=== PATIENT | female | born 1980 | race African-American/Black ===

== ENCOUNTER 2016-07-11 10:12 | Inpatient (IN) | payer OTHER ==
[2016-07-11 11:26] VITALS: BMI 24.6
--- NOTE | 2016-07-11 17:12 | HP ---
Admission ROS [facility] Chief Complaint: "I am here to Stop using drugs." Pt. is here for Rehab for Alcohol, Cocaine, and Marijuana. Allergies/Adverse Reactions: Allergies Allergy/AdvReac Type Severity Reaction Status Date / Time No Known Allergies Allergy Verified 07/11/16 12:47 History of Present Illness: Pt. is a 35 YO female here for Rehab for Alcohol, Cocaine, and for Marijuana. This is pt.'s first Inpatient Rehab admission at [facility]. Exam Limitations: No Limitations - Ebola screening Have you traveled outside of the country in the last 21 days: No Have you had contact with anyone from an Ebola affected area: No Have you been sick,other than usual withdrawal symptoms: No Do you have a fever: No - Review of Systems Constitutional: Chills, Diaphoresis, Fever, Loss of Appetite, Malaise, Night Sweats, Changes in sleep, Unexplained wgt Loss (Pt. has lost approx. 45 lbs. over last 6 months.) EENT: reports: Blurred Vision, Tearing, Other (Metal in Jaw.) Respiratory: reports: No Symptoms reported Cardiac: reports: No Symptoms Reported GI: reports: Poor Appetite : reports: No Symptoms Reported Musculoskeletal: reports: Back Pain, Joint Pain, Muscle Pain, Neck Pain, Joint Stiffness Integumentary: reports: No Symptoms Reported Neuro: reports: Numbness (Occasional in fingertips of bilateral hands and toes of bilateral feet.), Tingling (Occasional in fingertips of bilateral hands and toes of bilateral feet.) Endocrine: reports: No Symptoms Reported Hematology: reports: Anemia Psychiatric: reports: Judgement Intact, Mood/Affect Appropiate, Anxious, Depressed (On meds.), Disorientated (To Day / Date.) Other Systems: Reviewed and Negative Patient History - Patient Medical History Hx Anemia: Yes (Does not remember if she takes any med.) Hx Asthma: No Hx Chronic Obstructive Pulmonary Disease (COPD): No Hx Cancer: No Hx Cardiac Disorders: No Hx Congestive Heart Failure: No Hx Hypertension: No Hx Hypercholesterolemia: No Hx Pacemaker: No HX Cerebrovascular Accident: No Hx Seizures: No Hx Dementia: No Hx Diabetes: No Hx Gastrointestinal Disorders: No Hx Liver Disease: No Hx Genitourinary Disorders: No Hx Sexually Transmitted Disorders: No Hx Renal Disease (ESRD): No Hx Thyroid Disease: No Hx Human Immunodeficiency Virus (HIV): No (Last tested: 03/2016: NEGATIVE.) Hx Hepatitis C: No (Last tested: 03/2016: NEGATIVE.) Hx Depression: Yes (On meds.) Hx Suicide Attempt: No (PATIENT DENIES CURRENT SI / HI.) Hx Bipolar Disorder: Yes (On meds.) Hx Schizophrenia: Yes (Unsure; Informed by one MD in past that she might have.) - Patient Surgical History Past Surgical History: Yes Hx Neurologic Surgery: Yes (Head surgery, metal plate inserted, @ 2007.) Hx Cataract Extraction: No Hx Cardiac Surgery: No Hx Lung Surgery: No Hx Breast Surgery: No Hx Breast Biopsy: No Hx Abdominal Surgery: No Hx Appendectomy: No Hx Cholecystectomy: No Hx Genitourinary Surgery: No Hx Section: No Hx Orthopedic Surgery: No Hx Hysterectomy: No Anesthesia Reaction: No - PPD History Previous Implant?: Yes Documented Results: Negative w/o proof Implanted On Prior [facility] Admission?: Yes Date: 10/23/11 Results: OMM PPD to be Administered?: Yes - Reproductive History Patient is a Female of Child Bearing Age (11 -55 yrs old): Yes Last Menstrual Period: 06/24/16 Patient : No - Smoking Cessation Smoking history: Current every day smoker Have you smoked in the past 12 months: Yes Aproximately how many cigarettes per day: 1 Cigars Per Day: 0 Hx Chewing Tobacco Use: No Initiated information on smoking cessation: Yes 'Breaking Loose' booklet given: 07/11/16 (GIVEN ON UNIT.) - Substance & Tx. History Hx Alcohol Use: Yes Hx Substance Use: Yes Substance Use Type: Alcohol, Cocaine, Marijuana Hx Substance Use Treatment: No - Substances Abused Alcohol Route: Oral Frequency: 3-6 times per week Amount used: 2 Cups of Vodka. Age of first use: 18 Date of Last Use: 07/10/16 Cocaine Route: Inhalation Frequency: 1-2 times per week Amount used: 1-2 Grams Age of first use: 24 Date of Last Use: 07/10/16 Marijuana/Hashish Route: Smoking Frequency: Daily Amount used: 2 - 3 Bags Age of first use: 14 Date of Last Use: 07/10/16 PCP Route: Smoking Frequency: Daily Amount used: 2 Bags Age of first use: 21 Date of Last Use: 07/09/16 Family Disease History - Family Disease History Family Disease History: Respiratory: Son (Asthma.) Admission Physical Exam [facility] - Vital Signs Vital Signs: Vital Signs - 24 hr 07/11/16 11:19 Temperature 96.5 F L Pulse Rate 53 L Respiratory 18 Rate Blood Pressure 102/69 - Physical General Appearance: Yes: No Apparent Distress, Nourished, Appropriately Dressed HEENTM: Yes: Hearing grossly Normal, Normocephalic, Normal Voice, SHANELL, Pharynx Normal Respiratory: Yes: Chest Non-Tender, Lungs Clear, No Respiratory Distress Neck: Yes: No masses,lesions,Nodules, Supple, Trachea in good position Breast: Yes: Breast Exam Deferred Cardiology: Yes: Regular Rhythm, Regular Rate, S1, S2 Abdominal: Yes: Normal Bowel Sounds, Non Tender, Soft, Protuberent Genitourinary: Yes: Within Normal Limits Back: Yes: Decreased Range of Motion Musculoskeletal: Yes: Gait Steady, Back pain, Joint Stiffness, Muscle Pain Extremities: Yes: Other (Right Knee Pain and stiffness.) Neurological: Yes: Alert, Normal Mood/Affect, Normal Response Integumentary: Yes: Normal Color, Dry, Warm Lymphatic: Yes: Within Normal Limits - Diagnostic (1) Alcohol dependence Current Visit: Yes Status: Chronic (2) Cannabis dependence Current Visit: Yes Status: Chronic (3) Cocaine dependence Current Visit: Yes Status: Chronic (4) PCP DEPENDENCE Current Visit: Yes Status: Chronic (5) Nicotine dependence Current Visit: Yes Status: Chronic Qualifiers: Nicotine product type: cigarettes Substance use status: uncomplicated Qualified Code(s): F17.210 - Nicotine dependence, cigarettes, uncomplicated (6) Injury of low back Current Visit: Yes Status: Chronic Qualifiers: Encounter type: subsequent encounter Qualified Code(s): S39.92XD - Unspecified injury of lower back, subsequent encounter Cleared for Admission [facility] - Detox or Rehab Claeared for Rehab Admission: Yes [facility] Breath Alcohol Content Breath Alcohol Content: 0 Urine Pregancy Test - Result Urine Test Results: Negative- NO Line Present Urine Drug Screen - Results Drug Screen Negative: No Urine Drug Screen Results: THC-Marijuana, RASHAD-Cocaine, PCP-Phencyclidine
[2016-07-11] MEDS ORDERED: ACETAMINOPHEN 325 MG TABLET (FP) PO PRN (17:54)
[2016-07-11] MEDS ORDERED: MAGNESIUM HYDROX 2400MG/30ML ORAL SUSPENSION 30 ML CUP PO PRN (17:54)
[2016-07-11] MEDS ORDERED: LOPERAMIDE HCL 2 MG CAPSULE PO PRN (17:54)
[2016-07-11] MEDS ORDERED: guaiFENesin/D-METHORPHAN HB 10 ML UNIT-DOSE CUPS PO PRN (17:54)
[2016-07-11] MEDS ORDERED: P-EPHED 60MG/TRIPROLIDI 2.5MG TABLET PO PRN (17:54)
[2016-07-11] MEDS ORDERED: MAG HYDROX/AL HYDROX/SIMETH 30 ML UNIT-DOSE CUP PO PRN (17:54)
[2016-07-11] MEDS ORDERED: MAGNESIUM CITRATE 300 ML BOTTLE PO PRN (17:54)
[2016-07-11] MEDS ORDERED: diphenhydrAMINE HCL 50 MG CAPSULE PO PRN (17:54)
[2016-07-11] MEDS ORDERED: IBUPROFEN 400 MG TABLET (FP) PO PRN (17:54)
[2016-07-11] MEDS ORDERED: hydrOXYzine PAMOATE 50 MG CAPSULE (FP) PO PRN (17:54)
[2016-07-11] MEDS ORDERED: MENTHOL/PHENOL 1 EACH UD MM PRN (17:54)
[2016-07-11] MEDS: THIAMINE HCL 100 MG TABLET (FP) PO SCH (21:25)
[2016-07-11] MEDS: NICOTINE 14 MG/24 HOURS TOPICAL PATCH TD SCH (21:54)
[2016-07-11 22:40] LABS: URINE APPEARANCE SLCLOUDY; URINE BILIRUBIN NEGATIVE (NEGATIVE); URINE BLOOD NEGATIVE (NEGATIVE); URINE COLOR YELLOW; URINE GLUCOSE (UA) NEGATIVE (NEGATIVE); URINE KETONE NEGATIVE (NEGATIVE); URINE LEUK ESTERASE NEGATIVE (NEGATIVE); URINE NITRITE NEGATIVE (NEGATIVE); URINE PROTEIN NEGATIVE (NEGATIVE); URINE UROBILINOGEN NEGATIVE E.U./dl (0.2-1.0)
--- NOTE | 2016-07-12 10:08 | EKG ---
Test Reason : Blood Pressure : / mmHG Vent. Rate : 056 BPM Atrial Rate : 056 BPM P-R Int : 178 ms QRS Dur : 082 ms QT Int : 408 ms P-R-T Axes : 061 070 068 degrees QTc Int : 393 ms SINUS BRADYCARDIA POSSIBLE LEFT ATRIAL ENLARGEMENT SEPTAL INFARCT , AGE UNDETERMINED ABNORMAL ECG WHEN COMPARED WITH ECG OF 17-OCT-2011 11:37, NO SIGNIFICANT CHANGE WAS FOUND Confirmed by JESIKA VEGA MD ([id number]) on 07/12/2016 10:07:55 AM Referred By: Confirmed By:JESIKA VEGA MD
[2016-07-12 10:31] LABS: MCH 31.5 pg (25.7-33.7); MCHC 33.3 g/dl (32.0-36.0); MEAN CELL VOLUME 94.6 fl (80-96); MEAN PLT VOLUME 9.6 fl (7.5-11.1); PLATELET COUNT 209 K/MM3 (134-434); WHITE BLOOD COUNT 5.2 K/mm3 (4.0-10.0)
[2016-07-12] MEDS: PRENATAL VITAMINS W/ FOLIC ACID TABLET (FP) PO SCH (10:33)
[2016-07-12] MEDS: NICOTINE 14 MG/24 HOURS TOPICAL PATCH TD SCH (10:33)
[2016-07-12 11:31] LABS: ALBUMIN 3.6 g/dl (3.4-5.0); ALK PHOS 89 U/L (45-117); ANION GAP 7 (8-16); BILIRUBIN,TOTAL 0.7 mg/dL (0.2-1.0); CALCIUM 8.6 mg/dL (8.5-10.1); CO2 26 mmol/L (21-32); COCKROFT - GAULT 103.1305; CREATININE 0.9 mg/dL (0.55-1.02); GLUCOSE,RANDOM 85 mg/dL (74-106); SGOT/AST 15 U/L (15-37); SGPT/ALT 18 U/L (12-78); TOT PROT 6.3 g/dl (6.4-8.2)
[2016-07-12] MEDS: THIAMINE HCL 100 MG TABLET (FP) PO SCH (21:33)
[2016-07-13] MEDS: NICOTINE 14 MG/24 HOURS TOPICAL PATCH TD SCH (10:06)
[2016-07-13] MEDS: PRENATAL VITAMINS W/ FOLIC ACID TABLET (FP) PO SCH (10:06)
[2016-07-13] MEDS: THIAMINE HCL 100 MG TABLET (FP) PO SCH (21:01)
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
[2016-07-14] MEDS: NICOTINE 14 MG/24 HOURS TOPICAL PATCH TD SCH (10:49)
[2016-07-14] MEDS: PRENATAL VITAMINS W/ FOLIC ACID TABLET (FP) PO SCH (10:49)
[2016-07-14] MEDS ORDERED: PT OWN MED DRAWER 7, Y5N ONE (15:32)
[2016-07-14] MEDS: HYDROCORTISONE 2.5% TOPICAL CREAM 30 GM TUBE TP SCH (21:03)
[2016-07-14] MEDS: THIAMINE HCL 100 MG TABLET (FP) PO SCH (21:05)
[2016-07-15] MEDS: PRENATAL VITAMINS W/ FOLIC ACID TABLET (FP) PO SCH (09:53)
[2016-07-15] MEDS: NICOTINE 14 MG/24 HOURS TOPICAL PATCH TD SCH (09:53)
[2016-07-15] MEDS: HYDROCORTISONE 2.5% TOPICAL CREAM 30 GM TUBE TP SCH ×2 (09:54→21:21)
[2016-07-15] MEDS ORDERED: PT OWN MED DRAWER 7, Y5N ONE (09:55)
[2016-07-15] MEDS: THIAMINE HCL 100 MG TABLET (FP) PO SCH (21:21)
[2016-07-15] MEDS ORDERED: PHENYLEPHRINE 0.25%/STARCH 1 EACH SUPP.RECT RC ONE (21:25)
[2016-07-16] MEDS ORDERED: PT OWN MED DRAWER 7, Y5N ONE (08:47)
[2016-07-16] MEDS: HYDROCORTISONE 2.5% TOPICAL CREAM 30 GM TUBE TP SCH ×2 (10:18→21:16)
[2016-07-16] MEDS: NICOTINE 14 MG/24 HOURS TOPICAL PATCH TD SCH (10:19)
[2016-07-16] MEDS: PRENATAL VITAMINS W/ FOLIC ACID TABLET (FP) PO SCH (10:19)
[2016-07-16] MEDS: THIAMINE HCL 100 MG TABLET (FP) PO SCH (21:16)
[2016-07-16] MEDS: PHENYLEPHRINE 0.25%/STARCH 1 EACH SUPP.RECT RC PRN (21:46)
[2016-07-17] MEDS: NICOTINE 14 MG/24 HOURS TOPICAL PATCH TD SCH (10:27)
[2016-07-17] MEDS: PRENATAL VITAMINS W/ FOLIC ACID TABLET (FP) PO SCH (10:28)
[2016-07-17] MEDS: THIAMINE HCL 100 MG TABLET (FP) PO SCH (21:29)
[2016-07-18] MEDS: PRENATAL VITAMINS W/ FOLIC ACID TABLET (FP) PO SCH (10:09)
[2016-07-18] MEDS: NICOTINE 14 MG/24 HOURS TOPICAL PATCH TD SCH (10:49)
[2016-07-18] MEDS ORDERED: COLLOIDAL OATMEAL 1 BAR EACH TP PRN (11:58)
[2016-07-18] MEDS: THIAMINE HCL 100 MG TABLET (FP) PO SCH (21:13)
[2016-07-18] MEDS: PHENYLEPHRINE 0.25%/STARCH 1 EACH SUPP.RECT RC PRN (21:13)
[2016-07-19] MEDS: PRENATAL VITAMINS W/ FOLIC ACID TABLET (FP) PO SCH (09:58)
[2016-07-19] MEDS: NICOTINE 14 MG/24 HOURS TOPICAL PATCH TD SCH (09:58)
[2016-07-19] MEDS: THIAMINE HCL 100 MG TABLET (FP) PO SCH (21:12)
[2016-07-19] MEDS: PHENYLEPHRINE 0.25%/STARCH 1 EACH SUPP.RECT RC PRN (21:13)
[2016-07-20] MEDS: PRENATAL VITAMINS W/ FOLIC ACID TABLET (FP) PO SCH (09:59)
[2016-07-20] MEDS: NICOTINE 14 MG/24 HOURS TOPICAL PATCH TD SCH (10:00)
[2016-07-20] MEDS: PHENYLEPHRINE 0.25%/STARCH 1 EACH SUPP.RECT RC PRN (21:31)
[2016-07-20] MEDS: THIAMINE HCL 100 MG TABLET (FP) PO SCH (21:31)
[2016-07-21] MEDS: NICOTINE 14 MG/24 HOURS TOPICAL PATCH TD SCH (09:41)
[2016-07-21] MEDS: PRENATAL VITAMINS W/ FOLIC ACID TABLET (FP) PO SCH (09:41)
[2016-07-21] MEDS ORDERED: FLUCONAZOLE 50 MG TABLET PO ONE (14:15)
[2016-07-21] MEDS: THIAMINE HCL 100 MG TABLET (FP) PO SCH (21:52)
[2016-07-21] MEDS: PHENYLEPHRINE 0.25%/STARCH 1 EACH SUPP.RECT RC PRN (21:52)
[2016-07-22] MEDS: NICOTINE 14 MG/24 HOURS TOPICAL PATCH TD SCH (10:01)
[2016-07-22] MEDS: PRENATAL VITAMINS W/ FOLIC ACID TABLET (FP) PO SCH (10:01)
[2016-07-22 11:15] LABS: HIV 1 & 2 AB NEGATIVE; HIV 1 AGp24 NEGATIVE
[2016-07-22] MEDS: THIAMINE HCL 100 MG TABLET (FP) PO SCH (21:35)
[2016-07-23] MEDS: NICOTINE 14 MG/24 HOURS TOPICAL PATCH TD SCH (09:48)
[2016-07-23] MEDS: PRENATAL VITAMINS W/ FOLIC ACID TABLET (FP) PO SCH (09:48)
[2016-07-23] MEDS: NICOTINE POLACRILEX 2 MG GUM BC PRN (09:48)
[2016-07-23] MEDS: THIAMINE HCL 100 MG TABLET (FP) PO SCH (21:28)
[2016-07-24] MEDS: PRENATAL VITAMINS W/ FOLIC ACID TABLET (FP) PO SCH (09:57)
[2016-07-24] MEDS: NICOTINE 14 MG/24 HOURS TOPICAL PATCH TD SCH (09:57)
[2016-07-24] MEDS: NICOTINE POLACRILEX 2 MG GUM BC PRN (09:58)
--- NOTE | 2016-07-24 11:08 | PN ---
Psychiatric Progress Note Vital Signs: Vital Signs Period Temp Pulse Resp BP Sys/Rodriguez Pulse Ox Last 24 Hr 98.2 F 67 16-18 114/73 Date of Session: 07/24/16 Chief Complaint:: Discharge Note HPI: Patient addressing Cocaine, Cannabis and Phencyclidine Dependence, Alcohol Abuse comorbid with Nicotine Dependence and Bipolar Disorder ROS: Anemia Current Medications: Active Medications Generic Name Dose Route Start Last Admin Trade Name Freq PRN Reason Stop Dose Admin Acetaminophen 650 mg 07/11/16 17:54 Tylenol - PO Q4H PRN PAIN Al Hydroxide/Mg Hydroxide 30 ml 07/11/16 17:54 Mylanta Oral Suspension - PO Q6H PRN DYSPEPSIA Colloidal Oatmeal 1 applic 07/18/16 11:58 Aveeno Soap - TP DAILY PRN HYGEINE Diphenhydramine HCl 50 mg 07/11/16 17:54 Benadryl - PO HSMR1 PRN INSOMNIA Eucalyptus/Menthol/Phenol/Sorbitol 1 each 07/11/16 17:54 Cepastat Lozenge - MM Q4H PRN SORE THROAT Guaifenesin 10 ml 07/11/16 17:54 Robitussin Dm - PO Q6H PRN COUGH Hydroxyzine Pamoate 50 mg 07/11/16 17:54 Vistaril - PO Q4H PRN AGITATION Ibuprofen 400 mg 07/11/16 17:54 Motrin - PO Q6H PRN SEVERE PAIN Loperamide HCl 4 mg 07/11/16 17:54 Imodium - PO Q6H PRN DIARRHEA Magnesium Citrate 300 ml 07/11/16 17:54 Citroma - PO Q48H PRN CONSTIPATION Magnesium Hydroxide 30 ml 07/11/16 17:54 Milk Of Magnesia - PO DAILY PRN CONSTIPATION Nicotine 14 mg 07/11/16 18:00 07/24/16 09:57 Nicoderm Patch - TD Not Given DAILY GELY Nicotine Polacrilex 2 mg 07/11/16 17:54 07/24/16 09:58 Nicorette Gum - BC 2 mg Q2H PRN Administration NICOTINE REPLACEMENT RX Multivit/Folic Acid/Iron 1 tab 07/12/16 10:00 07/24/16 09:57 Vitamins (Sjr) - PO 1 tab DAILY GELY Administration Pseudoephedrine/Triprolidine 1 combo 07/11/16 17:54 Actifed - PO TID PRN NASAL CONGESTION Starch 1 each 07/16/16 21:16 07/21/16 21:52 Anusol Suppository - RC 1 each HS PRN Administration PAIN Thiamine HCl 100 mg 07/11/16 22:00 07/23/16 21:28 Vitamin B1 - PO 100 mg HS GELY Administration Current Side Effect: No Lab tests ordered: Yes Lab tests reviewed: Yes Provider note:: Patient will complete this program on 07/25/16. She has met her treatment goals and will continue to address her issues in outpatient treatment at [facility]. She verbalized understanding of the negative consequences of her addiction and recognizing the need to make changes in her life style in order to maintain sobriety. Scripts for 30 days supply of medications will be electronically transferred to [facility] at [address] [place] [address]. She is stable for discharge on 07/25/16 Total face to face time:: 35 Mental Status Exam - Mental Status Exam Alert and Oriented to: Time, Place, Person Cognitive Function: Fair Mood: Hopeful, Euthymic Affect: Appropriate Patient Behavior: Cooperative Speech Pattern: Clear Voice Loudness: Normal Thought Process: Intact Thought Disorder: Not Present Hallucinations: Denies Suicidal Ideation: Denies Homicidal Ideation: Denies Insight/Judgement: Fair Sleep: Fair Appetite: Good Muscle strength/Tone: Normal Gait/Station: Normal Psychiatric Treatment Plan - Problem List (1) Cocaine dependence Current Visit: Yes (2) Phencyclidine dependence Current Visit: Yes (3) Cannabis dependence Current Visit: Yes (4) Nicotine dependence Current Visit: Yes (5) Bipolar disorder Current Visit: Yes (6) Anemia Current Visit: Yes (7) Alcohol abuse Current Visit: Yes Initial treatment plan: Patient will be discharged tomorrow and referred to [facility] for outpatient treatment
[2016-07-24] MEDS: THIAMINE HCL 100 MG TABLET (FP) PO SCH (21:01)
[2016-07-25 06:42] VITALS: BP 115/67; PULSE 68; TEMP 97.9
[2016-07-25] MEDS: PRENATAL VITAMINS W/ FOLIC ACID TABLET (FP) PO SCH (09:11)
[2016-07-25] MEDS: NICOTINE 14 MG/24 HOURS TOPICAL PATCH TD SCH (09:11)
[2016-07-25] MEDS ORDERED: PT OWN MED DRAWER 7, Y5N ONE (09:14)
== END 2016-07-25 09:30 | disposition home or self-care (01) | DRG 772 ==
LOC: YASAS 10:12 → Y3W 18:17
PROVIDERS: ADMIT Psychiatry & Neurology Psychiatry; ATTEND Psychiatry & Neurology Psychiatry
PROC: HZ42ZZZ Group Counseling for Substance Abuse Treatment, Cognitive-Behavioral (ICD-10-PCS; principal; 2016-07-25)
DX: F14.20 Cocaine dependence, uncomplicated (principal); F12.20 Cannabis dependence, uncomplicated; F16.20 Hallucinogen dependence, uncomplicated; F17.210 Nicotine dependence, cigarettes, uncomplicated; F10.10 Alcohol abuse, uncomplicated; F31.9 Bipolar disorder, unspecified
CPT/HCPCS: 36415; 80053; 81003; 85027; 86593; 87389; 93005; 93010

== ENCOUNTER 2019-03-24 13:51 | Emergency (ER) | payer OTHER ==
[2019-03-24 14:05] VITALS: BMI 26.6
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
--- NOTE | 2019-03-24 15:40 | PDOC ---
Documentation entered by Allie Deluca SCRIBE, acting as scribe for Ray Baig MD. Ray Baig MD: This documentation has been prepared by the Yosi yates Brenda, SCRIBE, under my direction and personally reviewed by me in its entirety. I confirm that the documentation accurately reflects all work, treatment, procedures, and medical decision making performed by me. Attending Attestation - Resident Resident Name: ShantArchie - ED Attending Attestation I have performed the following: I have examined & evaluated the patient, The case was reviewed & discussed with the resident, I agree w/resident's findings & plan, Exceptions are as noted - HPI HPI: 03/24/19 15:14 The patient is a 38 year old female, with a significant PMH of substance abuse, major depressive disorder, schizophrenia, bipolar who presents to the emergency department with her mother for agitation and non-compliance with her medications. Mother states that she has not been taking any of her psych meds and used PCP and marijuana yesterday. She now is behaving erratically and responding to internal stimuli. The patient denies chest pain, shortness of breath and dizziness. Denies fever, chills, nausea, vomiting, diarrhea and constipation. Denies dysuria, frequency, urgency and hematuria. Allergies: NKA Social history: Marijuana use, PCP use, cocaine use (yesterday) - Physicial Exam PE: 03/24/19 15:14 GENERAL: Awake, alert, and fully oriented, in no acute distress. HEAD: No signs of trauma EYES: PERRLA, EOMI, sclera anicteric, conjunctiva clear ENT: Auricles normal inspection, hearing grossly normal, nares patent, oropharynx clear without exudates. Moist mucosa NECK: Nontender, no stepoffs, Normal ROM, supple, no lymphadenopathy, JVD, or masses LUNGS: Breath sounds equal, clear to auscultation bilaterally. No wheezes, and no crackles HEART: Regular rate and rhythm, normal S1 and S2, no murmurs, rubs or gallops ABDOMEN: Soft, nontender, normoactive bowel sounds. No guarding, no rebound. No masses EXTREMITIES: Normal range of motion, no edema. No clubbing or cyanosis. No cords, erythema, or tenderness NEUROLOGICAL: Cranial nerves II through XII intact. 5/5 strength and sensation in all extremities, Normal speech, normal gait, normal cerebellar function SKIN: Warm, Dry, normal turgor, no rashes or lesions noted. - Medical Decision Making 03/24/19 15:51 38 F presents to ED with possible acute psychotic episode. On exam pt appears to be responding to internal stimuli. - Labs - CT head - Utox - Psych consult 03/24/19 16:00 Pt becoming more agitated and combative, banging on windows. Condition 10 called haldol 5mg and ativan 2mg ordered 03/24/19 16:41 Dr. Coker consulted, will evaluate in AM when pt is clinically sober and medically cleared
[2019-03-24 15:57] LABS: BASO % 0.8 % (0-2.0); EOS % 0.9 % (0-4.5); HEMATOCRIT 43.1 % (32.4-45.2); HEMOGLOBIN 13.8 GM/dL (10.7-15.3); LYMPH % 24.7 % (8-40); MCH 31.2 pg (25.7-33.7); MCHC 32.2 g/dl (32.0-36.0); MEAN CELL VOLUME 97.1 fl (80-96); MEAN PLT VOLUME 8.9 fl (7.5-11.1); MONO % 10.4 % (3.8-10.2); NEUT % 63.2 % (42.8-82.8); PLATELET COUNT 308 K/MM3 (134-434); RBC 4.43 M/mm3 (3.60-5.2); RDW 14.2 % (11.6-15.6); WHITE BLOOD COUNT 6.1 K/mm3 (4.0-10.0)
[2019-03-24] MEDS ORDERED: HALOPERIDOL LACTATE 5 MG/ML IM ONE (16:00)
[2019-03-24] MEDS ORDERED: HALOPERIDOL LACTATE 5 MG/ML ONE (16:02)
[2019-03-24] MEDS ORDERED: LORazepam 2 MG/ML SDV VIAL ONE (16:03)
[2019-03-24 17:33] LABS: ALBUMIN 4.2 g/dl (3.4-5.0); ALK PHOS 106 U/L (45-117); ANION GAP 6 MMOL/L (8-16); BILIRUBIN,TOTAL 0.7 mg/dL (0.2-1); BLOOD UREA NITROGEN 11.2 mg/dL (7-18); CALCIUM 8.6 mg/dL (8.5-10.1); CHLORIDE 109 mmol/L (98-107); CO2 27 mmol/L (21-32); CREATININE 0.8 mg/dL (0.55-1.3); GLUCOSE,RANDOM 97 mg/dL (74-106); POTASSIUM 4.1 mmol/L (3.5-5.1); SGOT/AST 24 U/L (15-37); SGPT/ALT 26 U/L (13-61); SODIUM 141 mmol/L (136-145); TOT PROT 7.3 g/dl (6.4-8.2)
--- NOTE | 2019-03-24 19:20 | PDOC ---
*Physical Exam - Vital Signs Last Vital Signs Temp Pulse Resp BP Pulse Ox 98.1 F 75 14 117/77 97 03/24/19 19:02 03/24/19 19:02 03/24/19 19:02 03/24/19 19:02 03/24/19 19:02 ED Treatment Course - LABORATORY CBC & Chemistry Diagram: 03/24/19 15:32 03/24/19 15:32 - ADDITIONAL ORDERS Additional order review: Laboratory Results 03/24/19 03/24/19 03/24/19 15:32 15:32 15:32 Sodium 141 Potassium 4.1 Chloride 109 H Carbon Dioxide 27 Anion Gap 6 L BUN 11.2 Creatinine 0.8 Est GFR (CKD-EPI)AfAm 109.93 Est GFR (CKD-EPI)NonAf 94.85 Random Glucose 97 Calcium 8.6 Total Bilirubin 0.7 AST 24 ALT 26 Alkaline Phosphatase 106 Creatine Kinase 377 H Creatine Kinase Index 0.7 CK-MB (CK-2) 2.8 Troponin I < 0.02 Total Protein 7.3 Albumin 4.2 TSH 0.78 Serum , Qual Negative Salicylates Acetaminophen 03/24/19 03/24/19 15:32 15:32 Sodium Potassium Chloride Carbon Dioxide Anion Gap BUN Creatinine Est GFR (CKD-EPI)AfAm Est GFR (CKD-EPI)NonAf Random Glucose Calcium Total Bilirubin AST ALT Alkaline Phosphatase Creatine Kinase Creatine Kinase Index CK-MB (CK-2) Troponin I Total Protein Albumin TSH Serum , Qual Salicylates 2.1 L Acetaminophen <2.0 03/24/19 15:32 RBC 4.43 MCV 97.1 H MCHC 32.2 RDW 14.2 MPV 8.9 Neutrophils % 63.2 Lymphocytes % 24.7 Monocytes % 10.4 H Eosinophils % 0.9 Basophils % 0.8 - Medications Given in the ED: ED Medications Discontinued Medications Generic Name Dose Route Start Last Admin Trade Name Freq PRN Reason Stop Dose Admin Diphenhydramine HCl 25 mg 03/24/19 16:02 03/24/19 16:15 Benadryl Injection - IVPUSH 03/24/19 16:03 Not Given ONCE ONE Diphenhydramine HCl 50 mg 03/24/19 16:08 03/24/19 16:15 Benadryl Injection - IM 03/24/19 16:09 50 mg ONCE ONE Administration Haloperidol 5 mg 03/24/19 16:00 03/24/19 16:08 Haldol Injection (Fast Acting) - IM 03/24/19 16:01 5 mg ONCE ONE Administration Lorazepam 1 mg 03/24/19 15:21 03/24/19 15:37 Ativan Injection - IVPUSH 03/24/19 15:22 Not Given ONCE ONE Lorazepam 1 mg 03/24/19 15:28 03/24/19 16:08 Ativan Injection - IM 03/24/19 15:29 Not Given ONCE ONE Lorazepam 2 mg 03/24/19 16:01 03/24/19 16:08 Ativan Injection - IM 03/24/19 16:02 2 mg ONCE ONE Administration Medical Decision Making - Medical Decision Making 03/24/19 19:19 pt signed out pending psych eval -pt was agitated earlier and received haldol and ativan -pt currently resting 1:1 -prior attending spoke with dr. coker who will see the patient in the AM 03/24/19 19:19 labs reviewed without acute findings urine studies pending 03/24/19 21:41 pt gave urine sample pt to imaging called by [facility] facility who states there are beds available if the patient does need inpatient psych and after being seen by Dr. Coker- call [phone] ext 2006 03/24/19 22:04 cxr clear elbow xray neg 03/25/19 00:15 pcp marijuana + pt ambulatory in the ER 03/25/19 01:45 pt is medically clear for psych eval in the AM pt will be signed out to the oncoming team pending psych eval Discharge - Discharge Information Problems reviewed: Yes Clinical Impression/Diagnosis: Phencyclidine dependence, Cannabis dependence Psychotic disorder Qualifiers: Psychosis type: schizophrenia Schizophrenia type: disorganized schizophrenia Qualified Code(s): F20.1 - Disorganized schizophrenia Condition: Fair - Follow up/Referral - Patient Discharge Instructions - Post Discharge Activity
[2019-03-24 23:03] LABS: COCAINE, UR NEGATIVE ng/ml (CUTOFF=300); METHADONE, UR NEGATIVE ng/ml (CUTOFF=300); OPIATES, URI NEGATIVE ng/ml (CUTOFF=300); URINE AMPHETAMINES NEGATIVE ng/ml (CUTOFF=500); URINE BARBITURATES NEGATIVE ng/ml (CUTOFF=200); URINE BENZODIAZEPINES NEGATIVE ng/ml (CUTOFF=200)
[2019-03-24 23:05] LABS: PHENCYCLIDINE,URINE POSITIVE ng/ml (CUTOFF=25)
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
[2019-03-25 01:17] LABS: URINE APPEARANCE CLEAR; URINE BILIRUBIN NEGATIVE (NEGATIVE); URINE COLOR YELLOW; URINE GLUCOSE (UA) NEGATIVE (NEGATIVE); URINE KETONE NEGATIVE (NEGATIVE); URINE LEUK ESTERASE NEGATIVE (NEGATIVE); URINE NITRITE NEGATIVE (NEGATIVE); URINE PROTEIN NEGATIVE (NEGATIVE); URINE UROBILINOGEN 0.2 mg/dL (0.2-1.0)
--- NOTE | 2019-03-25 10:18 | CON.PSY ---
Psychiatry Consult Chief Complaint: 38 Domenic old female with a long history of BiPolar Disorder and substance abuse, currantly getting treatment at [facility] in [place] brought to ER by mother ayala Streeter and severe amnic and P{sychotoic behaviour. She was seen by [facility]tr Psych who recemmended admission. Patient has been very disorganized and aggressive in the ER. Symptoms: reports: Racing Thoughts, Sexual Dysfunction, Inability to Control Temper, Disorganized/Disruptive Thoughts - Previous Psychiatric Treatment Outpatient: Less than 6 mos ago Inpatient: 2 or more prior admissions - Previous Substance Abuse Treatment Outpatient: None Inpatient: None - Reason for Previous Treatment Reason for Previous Treatment: Biploar Illness, Cocaine - Allergies Allergies: Allergies Allergy/AdvReac Type Severity Reaction Status Date / Time No Known Allergies Allergy Verified 03/24/19 14:04 - Current Living Status Usual Living Arrangement: With Parent - Current Mental Status Evaluation Appearance: Disheveled Attitude: Belligerent - Affect Affect: Labile Appropriateness: Not Appropriate - Mood Mood: Euphoric, Angry - Speech/Language Expressive: Coherent - Psychomotor Activity Psychomotor Activity: Agitated - Thought Process Thought Process: Circumstantial - Thought Content Hallucinations: Absent Type: Grandiose, Bizarre - Self Perception Self Perception: No Impairment - Cognition Attention: Alert Memory, Short Term: 2/3 Memory, Remote with Promptin/3 - Concentration Serial Sevens Intact: No Simple Calculations Intact: No - Abstraction Proverb Interpretation: Prosper Judgement: Severely Impaired - Impulse Control Impulse Control: Severly Impaired - Suicidal Ideation Suicidal Ideation: No - Homicidal Ideation Homicidal Ideation: No Assessment/Plan 1) Patient is severly Psychotic and Manic displaying Bizzarre Behaviiour. 20 In Patient Psych admission on a 2 PC.
[2019-03-25] MEDS ORDERED: HALOPERIDOL LACTATE 5 MG/ML IM ONE (10:20)
[2019-03-25] MEDS ORDERED: LORazepam 2 MG/ML SDV VIAL IM ONE (10:20)
[2019-03-25] MEDS ORDERED: HALOPERIDOL LACTATE 5 MG/ML ONE (10:22)
[2019-03-25] MEDS ORDERED: LORazepam 2 MG/ML SDV VIAL ONE (10:23)
--- NOTE | 2019-03-25 10:41 | PDOC ---
*Physical Exam - Vital Signs Last Vital Signs Temp Pulse Resp BP Pulse Ox 98.3 F 76 16 124/81 99 03/25/19 10:25 03/25/19 10:25 03/25/19 10:25 03/25/19 10:25 03/25/19 10:25 ED Treatment Course - LABORATORY CBC & Chemistry Diagram: 03/25/19 12:51 03/25/19 12:51 - ADDITIONAL ORDERS Additional order review: Laboratory Results 03/25/19 03/24/19 01:04 22:30 Urine Color Yellow Urine Appearance Clear Urine pH 7.0 D Ur Specific [place] 1.002 L Urine Protein Negative Urine Glucose (UA) Negative Urine Ketones Negative Urine Blood Negative Urine Nitrite Negative Urine Bilirubin Negative Urine Urobilinogen 0.2 Ur Leukocyte Esterase Negative Opiates Screen Negative Methadone Screen Negative Barbiturate Screen Negative Phencyclidine Screen Positive A* Ur Amphetamines Screen Negative MDMA (Ecstasy) Screen Negative Benzodiazepines Screen Negative Cocaine Screen Negative U Marijuana (THC) Screen Positive A* 03/24/19 15:32 RBC 4.43 MCV 97.1 H MCHC 32.2 RDW 14.2 MPV 8.9 Neutrophils % 63.2 Lymphocytes % 24.7 Monocytes % 10.4 H Eosinophils % 0.9 Basophils % 0.8 - Medications Given in the ED: ED Medications Discontinued Medications Generic Name Dose Route Start Last Admin Trade Name Jay Jay PRN Reason Stop Dose Admin Diphenhydramine HCl 25 mg 03/24/19 16:02 03/24/19 16:15 Benadryl Injection - IVPUSH 03/24/19 16:03 Not Given ONCE ONE Diphenhydramine HCl 50 mg 03/24/19 16:08 03/24/19 16:15 Benadryl Injection - IM 03/24/19 16:09 50 mg ONCE ONE Administration Haloperidol 5 mg 03/24/19 16:00 03/24/19 16:08 Haldol Injection (Fast Acting) - IM 03/24/19 16:01 5 mg ONCE ONE Administration Haloperidol 5 mg 03/25/19 10:20 03/25/19 10:33 Haldol Injection (Fast Acting) - IM 03/25/19 10:21 5 mg ONCE ONE Administration Lorazepam 1 mg 03/24/19 15:21 03/24/19 15:37 Ativan Injection - IVPUSH 03/24/19 15:22 Not Given ONCE ONE Lorazepam 1 mg 03/24/19 15:28 03/24/19 16:08 Ativan Injection - IM 03/24/19 15:29 Not Given ONCE ONE Lorazepam 2 mg 03/24/19 16:01 03/24/19 16:08 Ativan Injection - IM 03/24/19 16:02 2 mg ONCE ONE Administration Lorazepam 2 mg 03/25/19 10:20 03/25/19 10:32 Ativan Injection - IM 03/25/19 10:21 2 mg ONCE ONE Administration Medical Decision Making - Medical Decision Making 03/25/19 10:40 38 F with acute psychosis and zeinab. Medically cleared last night. Pt evaluated by Dr. Coker, who recommends [facility] for inpatient psych admission [facility] forms signed 03/25/19 12:32 [facility] requesting repeat labs and EKG prior to accepting pt labs ordered 03/25/19 16:26 [facility] now refusing patient because mother has stated that she will not take pt back home after discharge SW to continue looking for beds Discharge - Discharge Information Problems reviewed: Yes Clinical Impression/Diagnosis: Phencyclidine dependence, Cannabis dependence Psychotic disorder Qualifiers: Psychosis type: schizophrenia Schizophrenia type: disorganized schizophrenia Qualified Code(s): F20.1 - Disorganized schizophrenia Condition: Fair Disposition: TRANSFER ACUTE CARE/OTHER HOSP - Follow up/Referral - Patient Discharge Instructions - Post Discharge Activity
[2019-03-25 13:12] LABS: EOS % 1.7 % (0-4.5); HEMATOCRIT 43.6 % (32.4-45.2); HEMOGLOBIN 14.3 GM/dL (10.7-15.3); LYMPH % 33.9 % (8-40); MCH 31.7 pg (25.7-33.7); MCHC 32.8 g/dl (32.0-36.0); MEAN CELL VOLUME 96.6 fl (80-96); MEAN PLT VOLUME 8.7 fl (7.5-11.1); MONO % 13.9 % (3.8-10.2); NEUT % 49.5 % (42.8-82.8); PLATELET COUNT 280 K/MM3 (134-434); RBC 4.52 M/mm3 (3.60-5.2); RDW 14.3 % (11.6-15.6); WHITE BLOOD COUNT 3.8 K/mm3 (4.0-10.0)
--- NOTE | 2019-03-25 13:23 | EKG ---
Test Reason : Blood Pressure : / mmHG Vent. Rate : 095 BPM Atrial Rate : 095 BPM P-R Int : 142 ms QRS Dur : 066 ms QT Int : 362 ms P-R-T Axes : 075 026 064 degrees QTc Int : 454 ms NORMAL SINUS RHYTHM POSSIBLE LEFT ATRIAL ENLARGEMENT BORDERLINE ECG WHEN COMPARED WITH ECG OF 11-JUL-2016 20:19, VENT. RATE HAS INCREASED BY 39 BPM QT HAS LENGTHENED Confirmed by LEANDRO WOLFE, AYE ([id number]) on 03/25/2019 1:23:19 PM Referred By: Confirmed By:AYE REEVES MD
[2019-03-25 13:29] LABS: ALBUMIN 3.8 g/dl (3.4-5.0); ALK PHOS 100 U/L (45-117); ANION GAP 5 MMOL/L (8-16); BILIRUBIN,TOTAL 0.9 mg/dL (0.2-1); BLOOD UREA NITROGEN 10.4 mg/dL (7-18); CALCIUM 8.9 mg/dL (8.5-10.1); CHLORIDE 108 mmol/L (98-107); CO2 27 mmol/L (21-32); CREATININE 0.8 mg/dL (0.55-1.3); GLUCOSE,RANDOM 80 mg/dL (74-106); POTASSIUM 4.3 mmol/L (3.5-5.1); SGOT/AST 40 U/L (15-37); SGPT/ALT 26 U/L (13-61); SODIUM 140 mmol/L (136-145); TOT PROT 6.9 g/dl (6.4-8.2)
--- NOTE | 2019-03-25 15:05 | EKG ---
Test Reason : Blood Pressure : / mmHG Vent. Rate : 081 BPM Atrial Rate : 081 BPM P-R Int : 148 ms QRS Dur : 074 ms QT Int : 376 ms P-R-T Axes : 070 061 056 degrees QTc Int : 436 ms NORMAL SINUS RHYTHM WITH SINUS ARRHYTHMIA POSSIBLE LEFT ATRIAL ENLARGEMENT SEPTAL INFARCT , AGE UNDETERMINED ABNORMAL ECG WHEN COMPARED WITH ECG OF 24-MAR-2019 15:41, NO SIGNIFICANT CHANGE WAS FOUND Confirmed by LEANDRO WOLFE, AYE ([id number]) on 03/25/2019 3:04:52 PM Referred By: Confirmed By:AYE REEVES MD
--- NOTE | 2019-03-25 18:48 | PDOC ---
*Physical Exam - Vital Signs Last Vital Signs Temp Pulse Resp BP Pulse Ox 97.8 F 92 H 18 125/73 97 03/25/19 16:25 03/25/19 16:25 03/25/19 16:25 03/25/19 16:25 03/25/19 16:25 - Physical Exam General Appearance: Yes: Nourished, Appropriately Dressed, Disheveled HEENT: positive: EOMI, SHANELL, Normal ENT Inspection, Pharynx Normal Neck: positive: Trachea midline, Normal Thyroid, Supple Respiratory/Chest: positive: Lungs Clear, Normal Breath Sounds. negative: Crackles, Wheezing Cardiovascular: positive: Regular Rhythm, Regular Rate, S1, S2. negative: Murmur, Gallop/S3, Gallop/S4 Vascular Pulses: Dorsalis-Pedis (R): 2+, Doralis-Pedis (L): 2+ Gastrointestinal/Abdominal: positive: Soft. negative: Distended, Guarding, Tenderness Neurologic: positive: Fully Oriented, Alert ED Treatment Course - LABORATORY CBC & Chemistry Diagram: 03/25/19 12:51 03/25/19 12:51 - ADDITIONAL ORDERS Additional order review: Laboratory Results 03/25/19 12:51 Sodium 140 Potassium 4.3 Chloride 108 H Carbon Dioxide 27 Anion Gap 5 L BUN 10.4 Creatinine 0.8 Est GFR (CKD-EPI)AfAm 109.93 Est GFR (CKD-EPI)NonAf 94.85 Random Glucose 80 Calcium 8.9 Total Bilirubin 0.9 AST 40 H ALT 26 Alkaline Phosphatase 100 Creatine Kinase 844 H Creatine Kinase Index 0.6 CK-MB (CK-2) 5.1 H Troponin I < 0.02 Total Protein 6.9 Albumin 3.8 03/25/19 03/24/19 12:51 15:32 RBC 4.52 4.43 MCV 96.6 H 97.1 H MCHC 32.8 32.2 RDW 14.3 14.2 MPV 8.7 8.9 Neutrophils % 49.5 D 63.2 Lymphocytes % 33.9 D 24.7 Monocytes % 13.9 H 10.4 H Eosinophils % 1.7 D 0.9 Basophils % 1.0 0.8 - Medications Given in the ED: ED Medications Discontinued Medications Generic Name Dose Route Start Last Admin Trade Name Freq PRN Reason Stop Dose Admin Diphenhydramine HCl 25 mg 03/24/19 16:02 03/24/19 16:15 Benadryl Injection - IVPUSH 03/24/19 16:03 Not Given ONCE ONE Diphenhydramine HCl 50 mg 03/24/19 16:08 03/24/19 16:15 Benadryl Injection - IM 03/24/19 16:09 50 mg ONCE ONE Administration Haloperidol 5 mg 03/24/19 16:00 03/24/19 16:08 Haldol Injection (Fast Acting) - IM 03/24/19 16:01 5 mg ONCE ONE Administration Haloperidol 5 mg 03/25/19 10:20 03/25/19 10:33 Haldol Injection (Fast Acting) - IM 03/25/19 10:21 5 mg ONCE ONE Administration Lorazepam 1 mg 03/24/19 15:21 03/24/19 15:37 Ativan Injection - IVPUSH 03/24/19 15:22 Not Given ONCE ONE Lorazepam 1 mg 03/24/19 15:28 03/24/19 16:08 Ativan Injection - IM 03/24/19 15:29 Not Given ONCE ONE Lorazepam 2 mg 03/24/19 16:01 03/24/19 16:08 Ativan Injection - IM 03/24/19 16:02 2 mg ONCE ONE Administration Lorazepam 2 mg 03/25/19 10:20 03/25/19 10:32 Ativan Injection - IM 03/25/19 10:21 2 mg ONCE ONE Administration Medical Decision Making - Medical Decision Making 38 y/o F, pmh of Bipolar disorder and substance abuse presents to the ED s/p psychotic behavior #Psychosis 2/2 to Bipolar Pt due for IM Haldol Decanoate on Apr 01 Pt is currently on Naltrexone following Feb [address] [facility] from [facility] due to issues with dispo Monitor overnight, if pt's psych status normalizes, can retry for admission for inpt psych 03/25/19 18:48 03/25/19 18:50 03/25/19 18:53 03/25/19 18:58 Discharge - Discharge Information Problems reviewed: Yes Clinical Impression/Diagnosis: Phencyclidine dependence, Cannabis dependence Psychotic disorder Qualifiers: Psychosis type: schizophrenia Schizophrenia type: disorganized schizophrenia Qualified Code(s): F20.1 - Disorganized schizophrenia Condition: Fair Disposition: TRANSFER ACUTE CARE/OTHER HOSP - Follow up/Referral - Patient Discharge Instructions - Post Discharge Activity
--- NOTE | 2019-03-25 20:37 | PDOC ---
*Physical Exam - Vital Signs Last Vital Signs Temp Pulse Resp BP Pulse Ox 97.8 F 92 H 18 125/73 97 03/25/19 16:25 03/25/19 16:25 03/25/19 16:25 03/25/19 16:25 03/25/19 16:25 - Physical Exam 03/25/19 20:34 pt signed out by previous team as committed for psychiatric evaluation for manic behavior. Patient given 5:2 by previous team. Patient is comfortable on my exam, requesting shower. Will continue 1;1 observation pending transfer to psych facility in the AM. ED Treatment Course - LABORATORY CBC & Chemistry Diagram: 03/25/19 12:51 03/25/19 12:51 - ADDITIONAL ORDERS Additional order review: Laboratory Results 03/25/19 12:51 Sodium 140 Potassium 4.3 Chloride 108 H Carbon Dioxide 27 Anion Gap 5 L BUN 10.4 Creatinine 0.8 Est GFR (CKD-EPI)AfAm 109.93 Est GFR (CKD-EPI)NonAf 94.85 Random Glucose 80 Calcium 8.9 Total Bilirubin 0.9 AST 40 H ALT 26 Alkaline Phosphatase 100 Creatine Kinase 844 H Creatine Kinase Index 0.6 CK-MB (CK-2) 5.1 H Troponin I < 0.02 Total Protein 6.9 Albumin 3.8 03/25/19 03/24/19 12:51 15:32 RBC 4.52 4.43 MCV 96.6 H 97.1 H MCHC 32.8 32.2 RDW 14.3 14.2 MPV 8.7 8.9 Neutrophils % 49.5 D 63.2 Lymphocytes % 33.9 D 24.7 Monocytes % 13.9 H 10.4 H Eosinophils % 1.7 D 0.9 Basophils % 1.0 0.8 - Medications Given in the ED: ED Medications Discontinued Medications Generic Name Dose Route Start Last Admin Trade Name Freq PRN Reason Stop Dose Admin Diphenhydramine HCl 25 mg 03/24/19 16:02 03/24/19 16:15 Benadryl Injection - IVPUSH 03/24/19 16:03 Not Given ONCE ONE Diphenhydramine HCl 50 mg 03/24/19 16:08 03/24/19 16:15 Benadryl Injection - IM 03/24/19 16:09 50 mg ONCE ONE Administration Haloperidol 5 mg 03/24/19 16:00 03/24/19 16:08 Haldol Injection (Fast Acting) - IM 03/24/19 16:01 5 mg ONCE ONE Administration Haloperidol 5 mg 03/25/19 10:20 03/25/19 10:33 Haldol Injection (Fast Acting) - IM 03/25/19 10:21 5 mg ONCE ONE Administration Lorazepam 1 mg 03/24/19 15:21 03/24/19 15:37 Ativan Injection - IVPUSH 03/24/19 15:22 Not Given ONCE ONE Lorazepam 1 mg 03/24/19 15:28 03/24/19 16:08 Ativan Injection - IM 03/24/19 15:29 Not Given ONCE ONE Lorazepam 2 mg 03/24/19 16:01 03/24/19 16:08 Ativan Injection - IM 03/24/19 16:02 2 mg ONCE ONE Administration Lorazepam 2 mg 03/25/19 10:20 03/25/19 10:32 Ativan Injection - IM 03/25/19 10:21 2 mg ONCE ONE Administration Medical Decision Making - Medical Decision Making 03/25/19 20:36 see comments above Discharge - Discharge Information Problems reviewed: Yes Clinical Impression/Diagnosis: Phencyclidine dependence, Cannabis dependence Psychotic disorder Qualifiers: Psychosis type: schizophrenia Schizophrenia type: disorganized schizophrenia Qualified Code(s): F20.1 - Disorganized schizophrenia Condition: Fair Disposition: TRANSFER ACUTE CARE/OTHER HOSP - Follow up/Referral - Patient Discharge Instructions - Post Discharge Activity
--- NOTE | 2019-03-26 07:24 | PDOC ---
*Physical Exam - Vital Signs Last Vital Signs Temp Pulse Resp BP Pulse Ox 97.3 F L 84 18 117/75 97 03/26/19 06:47 03/26/19 06:47 03/26/19 06:47 03/26/19 06:47 03/26/19 06:47 ED Treatment Course - LABORATORY CBC & Chemistry Diagram: 03/25/19 12:51 03/25/19 12:51 - ADDITIONAL ORDERS Additional order review: 03/25/19 03/24/19 12:51 15:32 RBC 4.52 4.43 MCV 96.6 H 97.1 H MCHC 32.8 32.2 RDW 14.3 14.2 MPV 8.7 8.9 Neutrophils % 49.5 D 63.2 Lymphocytes % 33.9 D 24.7 Monocytes % 13.9 H 10.4 H Eosinophils % 1.7 D 0.9 Basophils % 1.0 0.8 - Medications Given in the ED: ED Medications Discontinued Medications Generic Name Dose Route Start Last Admin Trade Name Tejq PRN Reason Stop Dose Admin Diphenhydramine HCl 25 mg 03/24/19 16:02 03/24/19 16:15 Benadryl Injection - IVPUSH 03/24/19 16:03 Not Given ONCE ONE Diphenhydramine HCl 50 mg 03/24/19 16:08 03/24/19 16:15 Benadryl Injection - IM 03/24/19 16:09 50 mg ONCE ONE Administration Haloperidol 5 mg 03/24/19 16:00 03/24/19 16:08 Haldol Injection (Fast Acting) - IM 03/24/19 16:01 5 mg ONCE ONE Administration Haloperidol 5 mg 03/25/19 10:20 03/25/19 10:33 Haldol Injection (Fast Acting) - IM 03/25/19 10:21 5 mg ONCE ONE Administration Lorazepam 1 mg 03/24/19 15:21 03/24/19 15:37 Ativan Injection - IVPUSH 03/24/19 15:22 Not Given ONCE ONE Lorazepam 1 mg 03/24/19 15:28 03/24/19 16:08 Ativan Injection - IM 03/24/19 15:29 Not Given ONCE ONE Lorazepam 2 mg 03/24/19 16:01 03/24/19 16:08 Ativan Injection - IM 03/24/19 16:02 2 mg ONCE ONE Administration Lorazepam 2 mg 03/25/19 10:20 03/25/19 10:32 Ativan Injection - IM 03/25/19 10:21 2 mg ONCE ONE Administration Medical Decision Making - Medical Decision Making 03/25/19 19:22 Received sign out. Pt seen and assessed at bedside. Pending placement - SW needs to be consulted again in AM. 03/25/19 23:02 Pt sleeping comfortably. 03/26/19 03:22 Pt sleeping comfortably. 03/26/19 07:15 No acute events overnight. Pt slept comfortably. Signed out to oncoming team Dr Kaur. Discharge - Discharge Information Problems reviewed: Yes Clinical Impression/Diagnosis: Phencyclidine dependence, Cannabis dependence Psychotic disorder Qualifiers: Psychosis type: schizophrenia Schizophrenia type: disorganized schizophrenia Qualified Code(s): F20.1 - Disorganized schizophrenia Condition: Guarded Disposition: TRANSFER ACUTE CARE/OTHER HOSP - Follow up/Referral - Patient Discharge Instructions - Post Discharge Activity
[2019-03-26] MEDS ORDERED: diphenhydrAMINE HCL 25 MG CAPSULE (FP) PO ONE (08:48)
[2019-03-26] MEDS ORDERED: VANCOMYCIN 1 GRAM (PRE-DOCKED) 1,000 MG/250 ML BAG IVPB ONE (09:02)
[2019-03-26] MEDS ORDERED: HALOPERIDOL LACTATE 5 MG/ML ONE (09:11)
[2019-03-26] MEDS ORDERED: LORazepam 2 MG/ML SDV VIAL ONE (09:12)
[2019-03-26] MEDS: HALOPERIDOL LACTATE 5 MG/ML IM ONE ×2 (09:19→14:00)
--- NOTE | 2019-03-26 13:48 | PDOC ---
*Physical Exam - Vital Signs Last Vital Signs Temp Pulse Resp BP Pulse Ox 97.3 F L 84 18 117/75 97 03/26/19 06:47 03/26/19 06:47 03/26/19 06:47 03/26/19 06:47 03/26/19 06:47 - Physical Exam 03/26/19 13:47 Patient is repeatedly agitated, refusing to come down. Dr. persaud of psychiatry informed and has stated that he was on the way to evaluate the patient but is currently not in the ED. Will administer sedating medication to prevent patient from self-injurious behavior. 03/26/19 14:53 Patient chemically and physically sedated. Patient spitting at MD and nursing and threatening physical harm. Patient placed in wrist, ankle restraints as well as a [place]. ED Treatment Course - LABORATORY CBC & Chemistry Diagram: 03/25/19 12:51 03/25/19 12:51 - ADDITIONAL ORDERS Additional order review: 03/24/19 22:30 Urine Culture - Final Urine - Urine Clean Catch NO GROWTH OBTAINED 03/25/19 03/24/19 12:51 15:32 RBC 4.52 4.43 MCV 96.6 H 97.1 H MCHC 32.8 32.2 RDW 14.3 14.2 MPV 8.7 8.9 Neutrophils % 49.5 D 63.2 Lymphocytes % 33.9 D 24.7 Monocytes % 13.9 H 10.4 H Eosinophils % 1.7 D 0.9 Basophils % 1.0 0.8 - Medications Given in the ED: ED Medications Discontinued Medications Generic Name Dose Route Start Last Admin Trade Name Tejq PRN Reason Stop Dose Admin Diphenhydramine HCl 25 mg 03/24/19 16:02 03/24/19 16:15 Benadryl Injection - IVPUSH 03/24/19 16:03 Not Given ONCE ONE Diphenhydramine HCl 50 mg 03/24/19 16:08 03/24/19 16:15 Benadryl Injection - IM 03/24/19 16:09 50 mg ONCE ONE Administration Diphenhydramine HCl 25 mg 03/26/19 08:48 03/26/19 09:21 Benadryl - PO 03/26/19 08:49 Not Given ONCE ONE Diphenhydramine HCl 25 mg 03/26/19 09:03 03/26/19 09:20 Benadryl Injection - IM 03/26/19 09:04 Not Given ONCE ONE Haloperidol 5 mg 03/24/19 16:00 03/24/19 16:08 Haldol Injection (Fast Acting) - IM 03/24/19 16:01 5 mg ONCE ONE Administration Haloperidol 5 mg 03/25/19 10:20 03/25/19 10:33 Haldol Injection (Fast Acting) - IM 03/25/19 10:21 5 mg ONCE ONE Administration Haloperidol 5 mg 03/26/19 08:47 03/26/19 09:19 Haldol Injection (Fast Acting) - IM 03/26/19 08:48 Not Given ONCE ONE Lorazepam 1 mg 03/24/19 15:21 03/24/19 15:37 Ativan Injection - IVPUSH 03/24/19 15:22 Not Given ONCE ONE Lorazepam 1 mg 03/24/19 15:28 03/24/19 16:08 Ativan Injection - IM 03/24/19 15:29 Not Given ONCE ONE Lorazepam 2 mg 03/24/19 16:01 03/24/19 16:08 Ativan Injection - IM 03/24/19 16:02 2 mg ONCE ONE Administration Lorazepam 2 mg 03/25/19 10:20 03/25/19 10:32 Ativan Injection - IM 03/25/19 10:21 2 mg ONCE ONE Administration Lorazepam 2 mg 03/26/19 08:47 03/26/19 09:08 Ativan Injection - IVPUSH 03/26/19 08:48 Not Given ONCE ONE Lorazepam 2 mg 03/26/19 09:03 03/26/19 09:19 Ativan Injection - IM 03/26/19 09:04 Not Given ONCE ONE Discharge - Discharge Information Clinical Impression/Diagnosis: Phencyclidine dependence, Cannabis dependence Psychotic disorder Qualifiers: Psychosis type: schizophrenia Schizophrenia type: disorganized schizophrenia Qualified Code(s): F20.1 - Disorganized schizophrenia Condition: Fair Disposition: TRANSFER ACUTE CARE/OTHER HOSP - Follow up/Referral - Patient Discharge Instructions - Post Discharge Activity
--- NOTE | 2019-03-26 14:00 | PN ---
Progress Note (short form) - Note Progress Note: Patient seen for Psych re evaluation. Hasbeen on 1;1 and been given [id number] and Haldol 5mg IM regimen, Responding poorly. MS: alert, pacing in the room, screaming and calling staff verbal epithets, Verbalizing paranoid, mandaeism and sexual outbursts, Combative when attempts were being made give another ativan and Haldol regimen. SExually preoccupied, acting out sexual acts, severe exhibitionism on display. poor impulse contyrol ang judgment. Very delusional and inappropriate, Flight of ideas, poor insight and judgment. REC: Needs In Patient Psych Hospitalization [facility]> 2) Er Medical staff are equipped to manage this very Psychotic Patient.
--- NOTE | 2019-03-26 19:34 | PDOC ---
*Physical Exam - Vital Signs Last Vital Signs Temp Pulse Resp BP Pulse Ox 97.3 F L 82 20 126/57 L 99 03/26/19 06:47 03/26/19 19:18 03/26/19 19:18 03/26/19 15:44 03/26/19 19:18 ED Treatment Course - LABORATORY CBC & Chemistry Diagram: 03/25/19 12:51 03/25/19 12:51 - ADDITIONAL ORDERS Additional order review: 03/24/19 22:30 Urine Culture - Final Urine - Urine Clean Catch NO GROWTH OBTAINED 03/25/19 03/24/19 12:51 15:32 RBC 4.52 4.43 MCV 96.6 H 97.1 H MCHC 32.8 32.2 RDW 14.3 14.2 MPV 8.7 8.9 Neutrophils % 49.5 D 63.2 Lymphocytes % 33.9 D 24.7 Monocytes % 13.9 H 10.4 H Eosinophils % 1.7 D 0.9 Basophils % 1.0 0.8 - Medications Given in the ED: ED Medications Discontinued Medications Generic Name Dose Route Start Last Admin Trade Name Tejq PRN Reason Stop Dose Admin Diphenhydramine HCl 25 mg 03/24/19 16:02 03/24/19 16:15 Benadryl Injection - IVPUSH 03/24/19 16:03 Not Given ONCE ONE Diphenhydramine HCl 50 mg 03/24/19 16:08 03/24/19 16:15 Benadryl Injection - IM 03/24/19 16:09 50 mg ONCE ONE Administration Diphenhydramine HCl 25 mg 03/26/19 08:48 03/26/19 09:21 Benadryl - PO 03/26/19 08:49 Not Given ONCE ONE Diphenhydramine HCl 25 mg 03/26/19 09:03 03/26/19 14:00 Benadryl Injection - IM 03/26/19 09:04 25 mg ONCE ONE Administration Haloperidol 5 mg 03/24/19 16:00 03/24/19 16:08 Haldol Injection (Fast Acting) - IM 03/24/19 16:01 5 mg ONCE ONE Administration Haloperidol 5 mg 03/25/19 10:20 03/25/19 10:33 Haldol Injection (Fast Acting) - IM 03/25/19 10:21 5 mg ONCE ONE Administration Haloperidol 5 mg 03/26/19 08:47 03/26/19 14:00 Haldol Injection (Fast Acting) - IM 03/26/19 08:48 5 mg ONCE ONE Administration Lorazepam 1 mg 03/24/19 15:21 03/24/19 15:37 Ativan Injection - IVPUSH 03/24/19 15:22 Not Given ONCE ONE Lorazepam 1 mg 03/24/19 15:28 03/24/19 16:08 Ativan Injection - IM 03/24/19 15:29 Not Given ONCE ONE Lorazepam 2 mg 03/24/19 16:01 03/24/19 16:08 Ativan Injection - IM 03/24/19 16:02 2 mg ONCE ONE Administration Lorazepam 2 mg 03/25/19 10:20 03/25/19 10:32 Ativan Injection - IM 03/25/19 10:21 2 mg ONCE ONE Administration Lorazepam 2 mg 03/26/19 08:47 03/26/19 09:08 Ativan Injection - IVPUSH 03/26/19 08:48 Not Given ONCE ONE Lorazepam 2 mg 03/26/19 09:03 03/26/19 14:00 Ativan Injection - IM 03/26/19 09:04 2 mg ONCE ONE Administration Medical Decision Making - Medical Decision Making 03/26/19 19:34 Received sign out from Dr Kaur. Pending placement - SW or case finishing machine adjuster needs to be consulted again in AM. Pt seen and assessed at bedside. In restraints, sleeping comfortably. 03/26/19 23:00 Pt sleeping comfortably. 03/27/19 03:30 Pt sleeping comfortably. 03/27/19 05:22 Pt sleeping comfortably. 03/27/19 07:31 Pt sleeping comfortably. Signed out to oncoming team Dr Michelle. Discharge - Discharge Information Problems reviewed: Yes Clinical Impression/Diagnosis: Phencyclidine dependence, Cannabis dependence Psychotic disorder Qualifiers: Psychosis type: schizophrenia Schizophrenia type: disorganized schizophrenia Qualified Code(s): F20.1 - Disorganized schizophrenia Condition: Guarded Disposition: TRANSFER ACUTE CARE/OTHER HOSP - Follow up/Referral - Patient Discharge Instructions - Post Discharge Activity
--- NOTE | 2019-03-27 07:21 | PDOC ---
*Physical Exam - Vital Signs Last Vital Signs Temp Pulse Resp BP Pulse Ox 98.1 F 83 18 128/77 97 03/27/19 06:14 03/27/19 06:14 03/27/19 06:14 03/27/19 06:14 03/27/19 06:14 ED Treatment Course - LABORATORY CBC & Chemistry Diagram: 03/25/19 12:51 03/25/19 12:51 - ADDITIONAL ORDERS Additional order review: 03/24/19 22:30 Urine Culture - Final Urine - Urine Clean Catch NO GROWTH OBTAINED 03/25/19 03/24/19 12:51 15:32 RBC 4.52 4.43 MCV 96.6 H 97.1 H MCHC 32.8 32.2 RDW 14.3 14.2 MPV 8.7 8.9 Neutrophils % 49.5 D 63.2 Lymphocytes % 33.9 D 24.7 Monocytes % 13.9 H 10.4 H Eosinophils % 1.7 D 0.9 Basophils % 1.0 0.8 - Medications Given in the ED: ED Medications Discontinued Medications Generic Name Dose Route Start Last Admin Trade Name Freq PRN Reason Stop Dose Admin Diphenhydramine HCl 25 mg 03/24/19 16:02 03/24/19 16:15 Benadryl Injection - IVPUSH 03/24/19 16:03 Not Given ONCE ONE Diphenhydramine HCl 50 mg 03/24/19 16:08 03/24/19 16:15 Benadryl Injection - IM 03/24/19 16:09 50 mg ONCE ONE Administration Diphenhydramine HCl 25 mg 03/26/19 08:48 03/26/19 09:21 Benadryl - PO 03/26/19 08:49 Not Given ONCE ONE Diphenhydramine HCl 25 mg 03/26/19 09:03 03/26/19 14:00 Benadryl Injection - IM 03/26/19 09:04 25 mg ONCE ONE Administration Haloperidol 5 mg 03/24/19 16:00 03/24/19 16:08 Haldol Injection (Fast Acting) - IM 03/24/19 16:01 5 mg ONCE ONE Administration Haloperidol 5 mg 03/25/19 10:20 03/25/19 10:33 Haldol Injection (Fast Acting) - IM 03/25/19 10:21 5 mg ONCE ONE Administration Haloperidol 5 mg 03/26/19 08:47 03/26/19 14:00 Haldol Injection (Fast Acting) - IM 03/26/19 08:48 5 mg ONCE ONE Administration Lorazepam 1 mg 03/24/19 15:21 03/24/19 15:37 Ativan Injection - IVPUSH 03/24/19 15:22 Not Given ONCE ONE Lorazepam 1 mg 03/24/19 15:28 03/24/19 16:08 Ativan Injection - IM 03/24/19 15:29 Not Given ONCE ONE Lorazepam 2 mg 03/24/19 16:01 03/24/19 16:08 Ativan Injection - IM 03/24/19 16:02 2 mg ONCE ONE Administration Lorazepam 2 mg 03/25/19 10:20 03/25/19 10:32 Ativan Injection - IM 03/25/19 10:21 2 mg ONCE ONE Administration Lorazepam 2 mg 03/26/19 08:47 03/26/19 09:08 Ativan Injection - IVPUSH 03/26/19 08:48 Not Given ONCE ONE Lorazepam 2 mg 03/26/19 09:03 03/26/19 14:00 Ativan Injection - IM 03/26/19 09:04 2 mg ONCE ONE Administration Medical Decision Making - Medical Decision Making Patient signed out by Dr. Van Pending tx to psych facility Pending CM and SW consultation this morning Vital Signs Temperature 98.1 F 03/27/19 06:14 Pulse Rate 83 03/27/19 06:14 Respiratory Rate 18 03/27/19 06:14 Blood Pressure 128/77 03/27/19 06:14 O2 Sat by Pulse Oximetry (%) 97 03/27/19 06:14 03/27/19 07:21 Call to SW; left a voicemail requesting callback 03/27/19 08:36 SW is down in the ED. Patient is still pending transfer 03/27/19 10:22 Discharge - Discharge Information Problems reviewed: Yes Clinical Impression/Diagnosis: Phencyclidine dependence, Cannabis dependence Psychotic disorder Qualifiers: Psychosis type: schizophrenia Schizophrenia type: disorganized schizophrenia Qualified Code(s): F20.1 - Disorganized schizophrenia Condition: Guarded Disposition: TRANSFER ACUTE CARE/OTHER HOSP - Follow up/Referral - Patient Discharge Instructions - Post Discharge Activity
[2019-03-27] MEDS ORDERED: HALOPERIDOL LACTATE 5 MG/ML IM ONE (15:07)
[2019-03-27] MEDS ORDERED: LORazepam 2 MG/ML SDV VIAL ONE (15:14)
[2019-03-27] MEDS ORDERED: HALOPERIDOL LACTATE 5 MG/ML ONE (15:14)
--- NOTE | 2019-03-27 19:17 | PDOC ---
*Physical Exam - Vital Signs Last Vital Signs Temp Pulse Resp BP Pulse Ox 98.2 F 75 20 126/78 100 03/27/19 13:27 03/27/19 13:27 03/27/19 13:27 03/27/19 13:27 03/27/19 13:27 ED Treatment Course - LABORATORY CBC & Chemistry Diagram: 03/25/19 12:51 03/25/19 12:51 - ADDITIONAL ORDERS Additional order review: 03/24/19 22:30 Urine Culture - Final Urine - Urine Clean Catch NO GROWTH OBTAINED 03/25/19 03/24/19 12:51 15:32 RBC 4.52 4.43 MCV 96.6 H 97.1 H MCHC 32.8 32.2 RDW 14.3 14.2 MPV 8.7 8.9 Neutrophils % 49.5 D 63.2 Lymphocytes % 33.9 D 24.7 Monocytes % 13.9 H 10.4 H Eosinophils % 1.7 D 0.9 Basophils % 1.0 0.8 - Medications Given in the ED: ED Medications Discontinued Medications Generic Name Dose Route Start Last Admin Trade Name Freq PRN Reason Stop Dose Admin Diphenhydramine HCl 25 mg 03/24/19 16:02 03/24/19 16:15 Benadryl Injection - IVPUSH 03/24/19 16:03 Not Given ONCE ONE Diphenhydramine HCl 50 mg 03/24/19 16:08 03/24/19 16:15 Benadryl Injection - IM 03/24/19 16:09 50 mg ONCE ONE Administration Diphenhydramine HCl 25 mg 03/26/19 08:48 03/26/19 09:21 Benadryl - PO 03/26/19 08:49 Not Given ONCE ONE Diphenhydramine HCl 25 mg 03/26/19 09:03 03/26/19 14:00 Benadryl Injection - IM 03/26/19 09:04 25 mg ONCE ONE Administration Diphenhydramine HCl 25 mg 03/27/19 15:07 03/27/19 15:41 Benadryl Injection - IM 03/27/19 15:08 25 mg ONCE ONE Administration Haloperidol 5 mg 03/24/19 16:00 03/24/19 16:08 Haldol Injection (Fast Acting) - IM 01/02/20 16:01 5 mg ONCE ONE Administration Haloperidol 5 mg 03/25/19 10:20 03/25/19 10:33 Haldol Injection (Fast Acting) - IM 03/25/19 10:21 5 mg ONCE ONE Administration Haloperidol 5 mg 03/26/19 08:47 03/26/19 14:00 Haldol Injection (Fast Acting) - IM 03/26/19 08:48 5 mg ONCE ONE Administration Haloperidol 5 mg 03/27/19 15:07 03/27/19 15:41 Haldol Injection (Fast Acting) - IM 03/27/19 15:08 5 mg ONCE ONE Administration Lorazepam 1 mg 03/24/19 15:21 03/24/19 15:37 Ativan Injection - IVPUSH 03/24/19 15:22 Not Given ONCE ONE Lorazepam 1 mg 03/24/19 15:28 03/24/19 16:08 Ativan Injection - IM 03/24/19 15:29 Not Given ONCE ONE Lorazepam 2 mg 03/24/19 16:01 03/24/19 16:08 Ativan Injection - IM 03/24/19 16:02 2 mg ONCE ONE Administration Lorazepam 2 mg 03/25/19 10:20 03/25/19 10:32 Ativan Injection - IM 03/25/19 10:21 2 mg ONCE ONE Administration Lorazepam 2 mg 03/26/19 08:47 03/26/19 09:08 Ativan Injection - IVPUSH 03/26/19 08:48 Not Given ONCE ONE Lorazepam 2 mg 03/26/19 09:03 03/26/19 14:00 Ativan Injection - IM 03/26/19 09:04 2 mg ONCE ONE Administration Lorazepam 2 mg 03/27/19 15:07 03/27/19 15:40 Ativan Injection - IM 03/27/19 15:08 2 mg ONCE ONE Administration Medical Decision Making - Medical Decision Making 03/27/19 19:[address] Michelle. Will continue to monitor patient, f/u SW recs and attempt transfer. Discharge - Discharge Information Problems reviewed: Yes Clinical Impression/Diagnosis: Phencyclidine dependence, Cannabis dependence Psychotic disorder Qualifiers: Psychosis type: schizophrenia Schizophrenia type: disorganized schizophrenia Qualified Code(s): F20.1 - Disorganized schizophrenia Condition: Guarded Disposition: TRANSFER ACUTE CARE/OTHER HOSP - Follow up/Referral - Patient Discharge Instructions - Post Discharge Activity
--- NOTE | 2019-03-28 07:26 | PDOC ---
*Physical Exam - Vital Signs Last Vital Signs Temp Pulse Resp BP Pulse Ox 98.2 F 75 20 126/78 100 03/27/19 13:27 03/27/19 13:27 03/27/19 13:27 03/27/19 13:27 03/27/19 13:27 ED Treatment Course - LABORATORY CBC & Chemistry Diagram: 03/30/19 08:00 03/30/19 08:00 - ADDITIONAL ORDERS Additional order review: 03/24/19 22:30 Urine Culture - Final Urine - Urine Clean Catch NO GROWTH OBTAINED 03/25/19 03/24/19 12:51 15:32 RBC 4.52 4.43 MCV 96.6 H 97.1 H MCHC 32.8 32.2 RDW 14.3 14.2 MPV 8.7 8.9 Neutrophils % 49.5 D 63.2 Lymphocytes % 33.9 D 24.7 Monocytes % 13.9 H 10.4 H Eosinophils % 1.7 D 0.9 Basophils % 1.0 0.8 - RADIOLOGY Radiology Studies Ordered: Category Date Time Status HEAD CT WITHOUT CONTRAST [CT] Stat CT Scan 03/24/19 15:09 Completed CHEST PA & LAT [RAD] Stat Radiology 03/24/19 15:12 Completed ELBOW-LEFT [RAD] Stat Radiology 03/24/19 15:09 Completed - Medications Given in the ED: ED Medications Discontinued Medications Generic Name Dose Route Start Last Admin Trade Name Freq PRN Reason Stop Dose Admin Diphenhydramine HCl 25 mg 03/24/19 16:02 03/24/19 16:15 Benadryl Injection - IVPUSH 03/24/19 16:03 Not Given ONCE ONE Diphenhydramine HCl 50 mg 03/24/19 16:08 03/24/19 16:15 Benadryl Injection - IM 03/24/19 16:09 50 mg ONCE ONE Administration Diphenhydramine HCl 25 mg 03/26/19 08:48 03/26/19 09:21 Benadryl - PO 03/26/19 08:49 Not Given ONCE ONE Diphenhydramine HCl 25 mg 03/26/19 09:03 03/26/19 14:00 Benadryl Injection - IM 03/26/19 09:04 25 mg ONCE ONE Administration Diphenhydramine HCl 25 mg 03/27/19 15:07 03/27/19 15:41 Benadryl Injection - IM 03/27/19 15:08 25 mg ONCE ONE Administration Haloperidol 5 mg 03/24/19 16:00 03/24/19 16:08 Haldol Injection (Fast Acting) - IM 03/24/19 16:01 5 mg ONCE ONE Administration Haloperidol 5 mg 03/25/19 10:20 03/25/19 10:33 Haldol Injection (Fast Acting) - IM 03/25/19 10:21 5 mg ONCE ONE Administration Haloperidol 5 mg 03/26/19 08:47 03/26/19 14:00 Haldol Injection (Fast Acting) - IM 03/26/19 08:48 5 mg ONCE ONE Administration Haloperidol 5 mg 03/27/19 15:07 03/27/19 15:41 Haldol Injection (Fast Acting) - IM 03/27/19 15:08 5 mg ONCE ONE Administration Lorazepam 1 mg 03/24/19 15:21 03/24/19 15:37 Ativan Injection - IVPUSH 03/24/19 15:22 Not Given ONCE ONE Lorazepam 1 mg 03/24/19 15:28 03/24/19 16:08 Ativan Injection - IM 03/24/19 15:29 Not Given ONCE ONE Lorazepam 2 mg 03/24/19 16:01 03/24/19 16:08 Ativan Injection - IM 03/24/19 16:02 2 mg ONCE ONE Administration Lorazepam 2 mg 03/25/19 10:20 03/25/19 10:32 Ativan Injection - IM 03/25/19 10:21 2 mg ONCE ONE Administration Lorazepam 2 mg 03/26/19 08:47 03/26/19 09:08 Ativan Injection - IVPUSH 03/26/19 08:48 Not Given ONCE ONE Lorazepam 2 mg 03/26/19 09:03 03/26/19 14:00 Ativan Injection - IM 03/26/19 09:04 2 mg ONCE ONE Administration Lorazepam 2 mg 03/27/19 15:07 03/27/19 15:40 Ativan Injection - IM 03/27/19 15:08 2 mg ONCE ONE Administration Medical Decision Making - Medical Decision Making 03/28/19 07:25 Sign-out received from night team Continue q4 checks, vitals Patient for transfer pending SW placement 03/28/19 11:46 Patient still resting comfortably, was up briefly around 10AM Vitals stable patient in no acute distress 03/28/19 15:13 Patient alert and oriented, resting in stretcher No acute distress or interventions required 03/28/19 18:[address] Payne Discharge - Discharge Information Problems reviewed: Yes Clinical Impression/Diagnosis: Phencyclidine dependence, Cannabis dependence Psychotic disorder Qualifiers: Psychosis type: schizophrenia Schizophrenia type: disorganized schizophrenia Qualified Code(s): F20.1 - Disorganized schizophrenia Condition: Guarded Disposition: HOME - Follow up/Referral - Patient Discharge Instructions Patient Printed Discharge Instructions: Substance Use Disorder Additional Instructions: you are to seek detox treatment. [facility] may go to [facility] if you wish to seek detox. you should avoid all drug use. return for any problems or concerns, you should continue your medications as prescribed. return for any thoughts of self harm or hamr to others or any concerns. - Post Discharge Activity Work/Back to School Note: My Personal Safety Plan
--- NOTE | 2019-03-28 10:07 | EKG ---
Test Reason : Blood Pressure : / mmHG Vent. Rate : 085 BPM Atrial Rate : 085 BPM P-R Int : 144 ms QRS Dur : 066 ms QT Int : 366 ms P-R-T Axes : 070 063 061 degrees QTc Int : 435 ms NORMAL SINUS RHYTHM POSSIBLE LEFT ATRIAL ENLARGEMENT SEPTAL INFARCT (CITED ON OR BEFORE 25-MAR-2019) ABNORMAL ECG WHEN COMPARED WITH ECG OF 25-MAR-2019 12:45, NO SIGNIFICANT CHANGE WAS FOUND Confirmed by PAUL RODRIGUEZ MD ([id number]) on 03/28/2019 10:07:40 AM Referred By: Confirmed By:PAUL RODRIGUEZ MD
--- NOTE | 2019-03-28 18:52 | PN ---
Progress Note (short form) - Note Progress Note: No essential changes seen in Patients Mental status. Still agitated, sexually aggressive, christianity and grandiosed. Still displaying acute aggression and in appropriate behaviour. Continues to be on 1:1. REc; 1) Continue with Restraints. Neds In Patient Psych admission. @) awaiting transfer to In Patient Psych unit.
--- NOTE | 2019-03-29 07:34 | PDOC ---
*Physical Exam - Vital Signs Last Vital Signs Temp Pulse Resp BP Pulse Ox 98.3 F 83 18 110/62 99 03/28/19 22:17 03/29/19 04:16 03/29/19 04:16 03/29/19 04:16 03/29/19 04:16 ED Treatment Course - LABORATORY CBC & Chemistry Diagram: 03/25/19 12:51 03/25/19 12:51 - ADDITIONAL ORDERS Additional order review: 03/24/19 22:30 Urine Culture - Final Urine - Urine Clean Catch NO GROWTH OBTAINED 03/25/19 03/24/19 12:51 15:32 RBC 4.52 4.43 MCV 96.6 H 97.1 H MCHC 32.8 32.2 RDW 14.3 14.2 MPV 8.7 8.9 Neutrophils % 49.5 D 63.2 Lymphocytes % 33.9 D 24.7 Monocytes % 13.9 H 10.4 H Eosinophils % 1.7 D 0.9 Basophils % 1.0 0.8 - Medications Given in the ED: ED Medications Discontinued Medications Generic Name Dose Route Start Last Admin Trade Name Freq PRN Reason Stop Dose Admin Diphenhydramine HCl 25 mg 03/24/19 16:02 03/24/19 16:15 Benadryl Injection - IVPUSH 03/24/19 16:03 Not Given ONCE ONE Diphenhydramine HCl 50 mg 03/24/19 16:08 03/24/19 16:15 Benadryl Injection - IM 03/24/19 16:09 50 mg ONCE ONE Administration Diphenhydramine HCl 25 mg 03/26/19 08:48 03/26/19 09:21 Benadryl - PO 03/26/19 08:49 Not Given ONCE ONE Diphenhydramine HCl 25 mg 03/26/19 09:03 03/26/19 14:00 Benadryl Injection - IM 03/26/19 09:04 25 mg ONCE ONE Administration Diphenhydramine HCl 25 mg 03/27/19 15:07 03/27/19 15:41 Benadryl Injection - IM 03/27/19 15:08 25 mg ONCE ONE Administration Haloperidol 5 mg 03/24/19 16:00 03/24/19 16:08 Haldol Injection (Fast Acting) - IM 01/02/20 16:01 5 mg ONCE ONE Administration Haloperidol 5 mg 03/25/19 10:20 03/25/19 10:33 Haldol Injection (Fast Acting) - IM 03/25/19 10:21 5 mg ONCE ONE Administration Haloperidol 5 mg 03/26/19 08:47 03/26/19 14:00 Haldol Injection (Fast Acting) - IM 03/26/19 08:48 5 mg ONCE ONE Administration Haloperidol 5 mg 03/27/19 15:07 03/27/19 15:41 Haldol Injection (Fast Acting) - IM 03/27/19 15:08 5 mg ONCE ONE Administration Lorazepam 1 mg 03/24/19 15:21 03/24/19 15:37 Ativan Injection - IVPUSH 03/24/19 15:22 Not Given ONCE ONE Lorazepam 1 mg 03/24/19 15:28 03/24/19 16:08 Ativan Injection - IM 03/24/19 15:29 Not Given ONCE ONE Lorazepam 2 mg 03/24/19 16:01 03/24/19 16:08 Ativan Injection - IM 03/24/19 16:02 2 mg ONCE ONE Administration Lorazepam 2 mg 03/25/19 10:20 03/25/19 10:32 Ativan Injection - IM 03/25/19 10:21 2 mg ONCE ONE Administration Lorazepam 2 mg 03/26/19 08:47 03/26/19 09:08 Ativan Injection - IVPUSH 03/26/19 08:48 Not Given ONCE ONE Lorazepam 2 mg 03/26/19 09:03 03/26/19 14:00 Ativan Injection - IM 03/26/19 09:04 2 mg ONCE ONE Administration Lorazepam 2 mg 03/27/19 15:07 03/27/19 15:40 Ativan Injection - IM 03/27/19 15:08 2 mg ONCE ONE Administration Medical Decision Making - Medical Decision Making 03/29/19 07:33 Patient is pending transfer to inpatient psych. Resting comfortably, will reassess 03/29/19 14:44 evaluated patient 2 hours ago, patient roaming around room, stating she wants to leave. Patient lacks insight, does not have capacity. Patient told that she is waiting for transfer to inpatient facility. No aggression noted. 03/29/19 16:17 5+2 at around 1pm. patient found pacing in room. 03/29/19 19:[address] Castro Discharge - Discharge Information Problems reviewed: Yes Clinical Impression/Diagnosis: Phencyclidine dependence, Cannabis dependence Psychotic disorder Qualifiers: Psychosis type: schizophrenia Schizophrenia type: disorganized schizophrenia Qualified Code(s): F20.1 - Disorganized schizophrenia Condition: Guarded Disposition: TRANSFER ACUTE CARE/OTHER HOSP - Follow up/Referral - Patient Discharge Instructions - Post Discharge Activity
[2019-03-29] MEDS ORDERED: HALOPERIDOL LACTATE 5 MG/ML IM ONE (13:07)
[2019-03-29] MEDS ORDERED: HALOPERIDOL LACTATE 5 MG/ML ONE (13:12)
[2019-03-29] MEDS ORDERED: LORazepam 2 MG/ML SDV VIAL ONE (13:13)
--- NOTE | 2019-03-29 21:19 | PDOC ---
*Physical Exam - Vital Signs Last Vital Signs Temp Pulse Resp BP Pulse Ox 98.0 F 83 18 115/72 96 03/29/19 09:00 03/29/19 04:16 03/29/19 04:16 03/29/19 09:00 03/29/19 09:00 ED Treatment Course - LABORATORY CBC & Chemistry Diagram: 03/25/19 12:51 03/25/19 12:51 - ADDITIONAL ORDERS Additional order review: 03/24/19 22:30 Urine Culture - Final Urine - Urine Clean Catch NO GROWTH OBTAINED 03/25/19 03/24/19 12:51 15:32 RBC 4.52 4.43 MCV 96.6 H 97.1 H MCHC 32.8 32.2 RDW 14.3 14.2 MPV 8.7 8.9 Neutrophils % 49.5 D 63.2 Lymphocytes % 33.9 D 24.7 Monocytes % 13.9 H 10.4 H Eosinophils % 1.7 D 0.9 Basophils % 1.0 0.8 - Medications Given in the ED: ED Medications Discontinued Medications Generic Name Dose Route Start Last Admin Trade Name Freq PRN Reason Stop Dose Admin Diphenhydramine HCl 25 mg 03/24/19 16:02 03/24/19 16:15 Benadryl Injection - IVPUSH 03/24/19 16:03 Not Given ONCE ONE Diphenhydramine HCl 50 mg 03/24/19 16:08 03/24/19 16:15 Benadryl Injection - IM 03/24/19 16:09 50 mg ONCE ONE Administration Diphenhydramine HCl 25 mg 03/26/19 08:48 03/26/19 09:21 Benadryl - PO 03/26/19 08:49 Not Given ONCE ONE Diphenhydramine HCl 25 mg 03/26/19 09:03 03/26/19 14:00 Benadryl Injection - IM 03/26/19 09:04 25 mg ONCE ONE Administration Diphenhydramine HCl 25 mg 03/27/19 15:07 03/27/19 15:41 Benadryl Injection - IM 03/27/19 15:08 25 mg ONCE ONE Administration Diphenhydramine HCl 25 mg 03/29/19 13:07 03/29/19 18:39 Benadryl Injection - IM 03/29/19 13:08 Not Given ONCE ONE Haloperidol 5 mg 03/24/19 16:00 03/24/19 16:08 Haldol Injection (Fast Acting) - IM 03/24/19 16:01 5 mg ONCE ONE Administration Haloperidol 5 mg 03/25/19 10:20 03/25/19 10:33 Haldol Injection (Fast Acting) - IM 03/25/19 10:21 5 mg ONCE ONE Administration Haloperidol 5 mg 03/26/19 08:47 03/26/19 14:00 Haldol Injection (Fast Acting) - IM 03/26/19 08:48 5 mg ONCE ONE Administration Haloperidol 5 mg 03/27/19 15:07 03/27/19 15:41 Haldol Injection (Fast Acting) - IM 03/27/19 15:08 5 mg ONCE ONE Administration Haloperidol 5 mg 03/29/19 13:07 03/29/19 18:40 Haldol Injection (Fast Acting) - IM 03/29/19 13:08 Not Given ONCE ONE Lorazepam 1 mg 03/24/19 15:21 03/24/19 15:37 Ativan Injection - IVPUSH 03/24/19 15:22 Not Given ONCE ONE Lorazepam 1 mg 03/24/19 15:28 03/24/19 16:08 Ativan Injection - IM 03/24/19 15:29 Not Given ONCE ONE Lorazepam 2 mg 03/24/19 16:01 03/24/19 16:08 Ativan Injection - IM 03/24/19 16:02 2 mg ONCE ONE Administration Lorazepam 2 mg 03/25/19 10:20 03/25/19 10:32 Ativan Injection - IM 03/25/19 10:21 2 mg ONCE ONE Administration Lorazepam 2 mg 03/26/19 08:47 03/26/19 09:08 Ativan Injection - IVPUSH 03/26/19 08:48 Not Given ONCE ONE Lorazepam 2 mg 03/26/19 09:03 03/26/19 14:00 Ativan Injection - IM 03/26/19 09:04 2 mg ONCE ONE Administration Lorazepam 2 mg 03/27/19 15:07 03/27/19 15:40 Ativan Injection - IM 03/27/19 15:08 2 mg ONCE ONE Administration Lorazepam 2 mg 03/29/19 13:07 03/29/19 18:39 Ativan Injection - IVPUSH 03/29/19 13:08 Not Given ONCE ONE Medical Decision Making - Medical Decision Making Pt received as sign out, continues to pend transfer to inpatient psych facility Pt ambulating in room Pt given dinner and tolerating PO in ED Displays delusional behavior and is speaking to persons that are not present Will continue to monitor 03/29/19 21:17 Discharge - Discharge Information Problems reviewed: Yes Clinical Impression/Diagnosis: Phencyclidine dependence, Cannabis dependence Psychotic disorder Qualifiers: Psychosis type: schizophrenia Schizophrenia type: disorganized schizophrenia Qualified Code(s): F20.1 - Disorganized schizophrenia Condition: Guarded Disposition: TRANSFER ACUTE CARE/OTHER HOSP - Follow up/Referral - Patient Discharge Instructions - Post Discharge Activity
[2019-03-30 08:27] LABS: EOS % 1.6 % (0-4.5); HEMATOCRIT 43.6 % (32.4-45.2); HEMOGLOBIN 14.5 GM/dL (10.7-15.3); LYMPH % 27.8 % (8-40); MCH 31.5 pg (25.7-33.7); MCHC 33.3 g/dl (32.0-36.0); MEAN CELL VOLUME 94.6 fl (80-96); MEAN PLT VOLUME 8.2 fl (7.5-11.1); MONO % 14.3 % (3.8-10.2); NEUT % 55.3 % (42.8-82.8); PLATELET COUNT 309 K/MM3 (134-434); RBC 4.61 M/mm3 (3.60-5.2); RDW 14.3 % (11.6-15.6); WHITE BLOOD COUNT 5.5 K/mm3 (4.0-10.0)
[2019-03-30 08:57] LABS: ALBUMIN 4.2 g/dl (3.4-5.0); ALK PHOS 100 U/L (45-117); ANION GAP 6 MMOL/L (8-16); BILIRUBIN,TOTAL 0.8 mg/dL (0.2-1); BLOOD UREA NITROGEN 7.6 mg/dL (7-18); CALCIUM 9.3 mg/dL (8.5-10.1); CHLORIDE 103 mmol/L (98-107); CO2 27 mmol/L (21-32); CREATININE 0.8 mg/dL (0.55-1.3); GLUCOSE,RANDOM 102 mg/dL (74-106); POTASSIUM 4.1 mmol/L (3.5-5.1); SGOT/AST 24 U/L (15-37); SGPT/ALT 26 U/L (13-61); SODIUM 135 mmol/L (136-145); TOT PROT 7.1 g/dl (6.4-8.2)
--- NOTE | 2019-03-30 11:35 | EKG ---
Test Reason : Blood Pressure : / mmHG Vent. Rate : 070 BPM Atrial Rate : 070 BPM P-R Int : 164 ms QRS Dur : 076 ms QT Int : 392 ms P-R-T Axes : 076 072 069 degrees QTc Int : 423 ms NORMAL SINUS RHYTHM WITH SINUS ARRHYTHMIA POSSIBLE LEFT ATRIAL ENLARGEMENT BORDERLINE ECG WHEN COMPARED WITH ECG OF 27-MAR-2019 17:49, NO SIGNIFICANT CHANGE WAS FOUND Confirmed by KEVIN WOLFE, MAGDA ([id number]) on 03/30/2019 11:35:06 AM Referred By: Confirmed By:MAGDA BROWN MD
--- NOTE | 2019-03-30 11:41 | PN ---
Progress Note (short form) - Note Progress Note: Psych Follow up; Patient seen for Psych re evaluation. Patient was admitted on 2 for acute Psychosis. She was treated with Haldol and ativan. MS; alert, oriented, much improved, able to comprehend, good eye contact. Knows the day and date. Receives Monthly IM long acting Injections from [facility] in [address] [place] [address]. No longer exhibiting any acute Psychosis or sexual acting out behaviour. Displaying appropriate Behaviour at this time. Not suicidal or Homicidal at this time. Cognition intact. REC; d/c 1:1. 2) Discharge from ER. 3) Follow up at [facility] on [address] [place] [address].
[2019-03-30 12:05] VITALS: BP 132/85; PULSE 88; TEMP 98
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
== END 2019-03-30 13:13 | disposition home or self-care (01) ==
LOC: JER 13:51
DX: S06.5X9A Traumatic subdural hemorrhage with loss of consciousness of unspecified duration, initial encounter (principal); N30.00 Acute cystitis without hematuria; I10 Essential (primary) hypertension; F03.90 Unspecified dementia, unspecified severity, without behavioral disturbance, psychotic disturbance, mood disturbance, and anxiety; Z79.01 Long term (current) use of anticoagulants; K21.9 Gastro-esophageal reflux disease without esophagitis
CPT/HCPCS: 36415; 70450-TC; 71046-TC-FY; 73070-TC-LT-FY; 80053; 80307; 81003; 82550; 82553; 84443; 84484; 84703; 85025; 87086; 93005; 93010; 99285-25